=== PATIENT | female | born 1935 | race Caucasian/White ===

== ENCOUNTER 2018-07-13 12:01 | Day surgery (SDC) | payer MEDICARE, OTHER ==
[~2018-07-13 12:01] MED LIST: Buffered Lidocaine 0.9% SYRIN* 5 ML/SYR SYRINGE INTRADERM ONE
[2018-07-13] MEDS ORDERED: fentaNYL* 50 MCG/ML 2 ML VIAL (100 MCG VIAL) ONE (13:33)
[2018-07-13] MEDS ORDERED: Midazolam* 1 MG/ML 2 ML VIAL (2 MG) ONE (13:33)
[2018-07-13] MEDS ORDERED: Propofol* 10 MG/ML 20 ML BTL IV PUSH ONE (14:13)
[2018-07-13] MEDS ORDERED: BSS OPTH.SOL* BTL ONE (14:14)
[2018-07-13] MEDS ORDERED: Bacitracin OPHTH.OINT* 3.5 GM ONE (14:33)
[2018-07-13] MEDS ORDERED: Ondansetron INJ* 2 MG/ML VIAL IV PRN (14:40)
[2018-07-13] MEDS ORDERED: Naloxone* 0.4 MG/ML 1 ML VIAL IV PRN (14:40)
[2018-07-13] MEDS ORDERED: Levalbuterol 0.63MG/3ML NEB* UNIT OF USE INH PRN (14:40)
[2018-07-13] MEDS ORDERED: DiMENhydriNATE IV* 50 MG/ML VIAL IV PUSH PRN (14:40)
[2018-07-13] MEDS ORDERED: diPHENhydraMINE IV* 50 MG/ML 1 ml VIAL (BENADRYL) IV PRN (14:40)
[2018-07-13] MEDS ORDERED: Acetaminophen TAB* 325 MG PO PRN (14:40)
[2018-07-13 15:00] VITALS: BP 206/87
--- NOTE | 2018-07-14 12:22 | OP ---
DATE OF OPERATION: 07/13/18 - [facility] DATE OF : 37. SURGEON: Ronal Ortega MD MIXING AND DISPENSING SUPERVISOR: None. ANESTHESIA: Local MAC. PRE-OP DIAGNOSIS: Basal cell carcinoma, right lower lid. POST-OP DIAGNOSIS: Basal cell carcinoma, right lower lid. OPERATIVE PROCEDURE: Wedge resection/excision of basal cell carcinoma right lower lid with eyelid reconstruction. ESTIMATED BLOOD LOSS: Less than 5 cc. DESCRIPTION OF PROCEDURE: The patient was brought to the operating room and her lower eyelid was inspected. Approximately, 9 cm x 4 cm pearly white lesion at the lower lid margin centrally in the right eye was noted. A marking pen was used to francine approximately 1.5 mm temporal and nasal to this lesion. The francine was also placed inferior to the lesion approximately 2 mm creating a baseball home-plate shaped figure. The patient received a small amount of intravenous sedation and approximately 0.5 cc of 1% lidocaine with epinephrine was injected under the eyelid lesion. The patient was prepped and draped in the usual sterile fashion for ophthalmic surgery. A Ku scissor was used to excise the lesion along the previously mentioned patten. The defect created, measured approximately 1.2 cm. Directly closing this lesion resulted in a small amount of tension on the eyelid. Thus, a lateral canthotomy and inferior cantholysis with a small semicircular flap extending from the lateral canthal angle temporarily and inferiorly on to the cheek was created. Gentle dissection on to the skin loosened up and tissue to allow direct closure with less tension. At this point, the deeper tissue including the tarsus was closed with interrupted 5-0 Vicryl. The margin was carefully opposed and closed with 6 -0 silk. A 6-0 silk was also used to close the skin. Attention was directed to the lateral canthal angle, which was then closed with 6-0 silk sutures. At the end of the case, the eyelid was well opposed and closed with minimal tension. There was no active bleeding. bacitracin was placed in the eye on the wounds. The patient was sent to the recovery room in stable condition with postoperative instructions and followup appointment given. The biopsy specimen was sent to the lab. [id number] #: [id number]
== END 2018-07-13 15:17 | disposition home or self-care (01) ==
LOC: OREAST 12:01
PROVIDERS: ATTEND Ophthalmology
DX: C44.1122 Basal cell carcinoma of skin of right lower eyelid, including canthus (principal); E03.9 Hypothyroidism, unspecified; I10 Essential (primary) hypertension
CPT/HCPCS: 88305; A9270-GY; J2250; J2704; J3010